=== PATIENT | male | born 1985 | race Caucasian/White ===

== ENCOUNTER 2017-11-08 12:11 | Emergency (ER) | payer OTHER ==
[2017-11-08 12:15] VITALS: BP 139/85
[2017-11-08] MEDS ORDERED: TDAP ADULT 0.5 ML INJ (BOOSTRIX) IM ONE (12:49)
--- NOTE | 2017-11-08 13:46 | EDPHY ---
H & P Time Seen by Provider: 11/08/17 13:45 HPI/ROS: CHIEF COMPLAINT: Left great thumb laceration HISTORY OF PRESENT ILLNESS: 32-year-old male here with laceration to the tip of left great thumb. Denies any numbness or loss of range of motion. There is no drug or alcohol use involved. 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 His tetanus is not up-to-date. REVIEW OF SYSTEMS: Constitutional: No fever, no chills. Eyes: No discharge. ENT: No sore throat. Cardiovascular: No chest pain, no palpitations. Respiratory: No cough, no shortness of breath. Gastrointestinal: No abdominal pain, no vomiting. Genitourinary: No hematuria. Musculoskeletal: No back pain. Skin: No rashes. Neurological: No headache. Smoking Status: Never smoked Physical Exam: General Appearance: Alert and no distress. Eyes: Pupils equal and round no injection. Respiratory: Chest is nontender, lungs are clear to auscultation. Cardiac: regular rate and rhythm. Gastrointestinal: Abdomen is soft and nontender, no masses, bowel sounds normal. Musculoskeletal: Neck is supple and nontender. Extremities have full range of motion and are nontender. Skin: No rashes 1.5 cm laceration over the extensor aspect of the 1st phalanx of the great thumb. Full range of motion of the thumb with no joint or tendon involvement. Bleeding well controlled with direct pressure. Constitutional: Initial Vital Signs Temperature (C) 36.7 C 11/08/17 12:13 Heart Rate 78 11/08/17 12:13 Respiratory Rate 18 11/08/17 12:13 Blood Pressure 139/85 H 11/08/17 12:13 O2 Sat (%) 95 11/08/17 12:13 O2 Delivery Mode Room Air Allergies/Adverse Reactions: No Known Allergies Allergy (Unverified 11/08/17 12:12) Home Medications: Medication Instructions Recorded NK [No Known Home Meds] 11/08/17 Medical Decision Making Procedures: Procedure: Laceration repair. Verbal consent was obtained from the patient. The left thumb laceration on the extensor aspect was anesthetized in the usual fashion. The wound was irrigated , draped and explored to its base. There were no deep structures involved. No tendon injury was identified. The wound was repaired with 5.0 nylon 6 sutures. The wound repair was well approximated. The procedure was performed by myself. Differential Diagnosis: Tendon laceration, joint capsule injury, foreign body, neurovascular injury, fracture - Data Points Medications Given: Discontinued Medications Diphtheria/Tetanus/Acell Pertussis (Boostrix) 0.5 ml IM .ONCE ONE Stop: 11/08/17 12:50 Last Admin: 11/08/17 13:08 Dose: 0.5 ml Departure - Departure Disposition: Home, Routine, Self-Care Clinical Impression: Finger laceration Condition: Good Instructions: Laceration (ED) Additional Instructions: Follow-up in 7 days for suture removal Referrals: NONE *PRIMARY CARE P,. [Primary Care Provider] - As per Instructions
== END 2017-11-08 14:26 | disposition home or self-care (01) ==
PROC: 0HQGXZZ Repair Left Hand Skin, External Approach (ICD-10-PCS; principal; 2017-11-08)
DX: S61.019A Laceration without foreign body of unspecified thumb without damage to nail, initial encounter (principal); Z23 Encounter for immunization; W26.8XXA Contact with other sharp object(s), not elsewhere classified, initial encounter; Y93.E9 Activity, other interior property and clothing maintenance; Y92.9 Unspecified place or not applicable